=== PATIENT | male | born 1965 | race Hispanic/Latino ===

== ENCOUNTER 2018-04-02 17:49 | Emergency (ER) | payer SELFPAY ==
[~2018-04-02] VITALS: Ht 152.4 cm; Wt 58.1 kg
[2018-04-02] MEDS ORDERED: PENICILLIN G BENZATHINE LA 1.2 MU TBX IM STA (18:20)
[2018-04-02] MEDS ORDERED: DEXAMETHASONE SOD PHOS INJ 4 MG/ML VIAL IM ONE (18:30)
[2018-04-02] MEDS ORDERED: KETOROLAC TROMETHAMINE 60 MG/2 ML VIAL IM ONE (18:30)
[2018-04-02] MEDS ORDERED: DEXAMETHASONE SOD PHOS 10 MG/1 ML VIAL ONE (20:01)
== END 2018-04-02 22:55 | disposition home or self-care (01) ==
LOC: ER 17:49
DX: R50.9 Fever, unspecified (principal); J02.0 Streptococcal pharyngitis
CPT/HCPCS: 99283; J0561; J1100; J1885